=== PATIENT | male | born 1940 | race Hispanic/Latino ===

== ENCOUNTER 2019-11-27 04:21 | Emergency (ER) | payer MEDICARE ==
[~2019-11-27] VITALS: Ht 170.2 cm; Wt 84.4 kg
[2019-11-27] MEDS ORDERED: PANTOPRAZOLE 40 MG 10ML VIAL IV STA (04:43)
[2019-11-27] MEDS ORDERED: OCTREOTIDE ACETATE 500 MCG in SODIUM CHLORIDE 0.9% 250ML 250 ML SQ STA (04:43)
--- NOTE | 2019-11-27 04:43 | NUR ---
Triage Note (not showing on tracker) 79 y/o male presents to ED via EMS per [facility] for vomiting coffee ground emesis since 1800 yesterday. Per EMS they sat in parking lot awaiting access to facility on 911 call for 1.5 hrs to bring pt to ED. Pt arrived to ED covered in dried dark red blood on face and neck, pt lying supine less than 30 degrees, noted excoriation to face and neck from dried blood irritating skin. Pt alert and oriented x 4, Azeri speaking, flaccid on L side d/t previous stroke.
[2019-11-27] MEDS ORDERED: SODIUM CHLORIDE 0.9% 1000ML 1,000 ML IV SCH ×2 (04:45→06:00)
[2019-11-27 05:15] LABS: BASOPHILS # (AUTO) 0.1 (0.0-0.1); BASOPHILS % 0.2 % (0.0-1.0); EOSINOPHILS # (AUTO) 5.7 (0.0-0.4); EOSINOPHILS % 27.9 % (0.0-6.0); HEMOGLOBIN 13.9 g/dL (14.0-18.0); LYMPHOCYTES # (AUTO) 1.4 (1.0-3.2); MEAN CORPUSCULAR HEMOGLOBIN 26.5 pg (28-32); MEAN CORPUSCULAR HGB CONC 31.6 g/dL (31-35); MEAN CORPUSCULAR VOLUME 83.8 fL (81-99); MONOCYTES # (AUTO) 0.9 (0.2-0.8); MONOCYTES % 4.4 % (4.4-11.3); NEUTROPHILS # (AUTO) 12.2 (2.1-6.9); NEUTROPHILS % 59.9 % (38.7-80.0); PLATELET COUNT 253 x10e3/uL (140-360); RED BLOOD COUNT 5.25 x10e6/uL (4.3-5.7); RED CELL DISTRIBUTION WIDTH 14.6 % (11.7-14.4)
[2019-11-27] MEDS ORDERED: TRADJENTA5 MG PO (05:32)
[2019-11-27 05:34] LABS: CREATINE KINASE MB 1.5 ng/mL (0-5.0)
[2019-11-27] MEDS ORDERED: NEXIUM20 M1 (05:40)
[2019-11-27] MEDS ORDERED: ZOLOFT25 MG (05:40)
[2019-11-27] MEDS ORDERED: LOSARTAN POTAS100 MG PO (05:40)
[2019-11-27] MEDS ORDERED: ELIQUIS5 M1 PO (05:40)
[2019-11-27] MEDS ORDERED: ELDERTONIC473 ML (05:40)
[2019-11-27] MEDS ORDERED: TYLENOL # 31 EA (05:40)
[2019-11-27] MEDS ORDERED: ATORVASTATIN CA10 MG PO (05:40)
[2019-11-27] MEDS ORDERED: SENNA LAX8.6 MG PO (05:40)
[2019-11-27] MEDS ORDERED: LACTULOSE20 GM/30 M PO (05:40)
[2019-11-27] MEDS ORDERED: HYDROCHLOROTHIA25 MG (05:40)
[2019-11-27] MEDS ORDERED: FINASTERIDE5 MG PO (05:40)
[2019-11-27 05:41] LABS: ALBUMIN 3.5 g/dL (3.5-5.0); ALBUMIN/GLOBULIN RATIO 0.8 (0.8-2.0); ANION GAP 19.2 mmol/L (8-16); CALCIUM 9.5 mg/dL (8.4-10.2); CREATININE, SERUM 1.63 mg/dL (0.72-1.25); POTASSIUM 4.2 mmol/L (3.5-5.1)
[2019-11-27] MEDS ORDERED: ONDANSETRON HCL INJ 2MG/ML 2ML 2 MG/ML VIAL IV STA (05:43)
[2019-11-27] MEDS ORDERED: PANTOPRAZOLE INJ 40 MG in SODIUM CHLORIDE 0.9% 50ML 50 ML IV STA (05:49)
[2019-11-27] MEDS ORDERED: CEFTRIAXONE SOD 1 GM/NS 50 ML 50 ML IV ONE (06:00)
--- NOTE | 2019-11-27 06:03 | Emergency Department Note ---
History of Present Illnes History of Present Illness Chief Complaint: Abdominal Complaints History of Present Illness This is a 79 year old male arrived to the ED for coffee ground emesis. Historian: Patient, Management Advisor/EMS Arrival Mode: [facility] EMS Treatment RETOUCHER: See EMS Report Severity: mild Timing of current episode: constant Chronicity: new (MARIAMA BELLO, ) Past Medical/Family History Physician Review I have reviewed the patient's past medical and family history. Any updates have been documented here. (MARIAMA BELLO DO) Past Medical History Recent Fever: No Clinical Suspicion of Infectio: No New/Unexplained Change in Ment: No Past Medical History: Hypertension, Diabetes, CVA, GERD, Hyperlipedemia Other Surgery: abdominal surgery (MARIAMA BELLO DO) Social History Smoking Cessation: Unknown if ever smoked Counseling Performed: Yes Alcohol Use: None Any Illegal Drug Use: No (MARIAMA BELLO, ) Other Any Pre-Existing Lines (PICC,: No (MARIAMA BELLO DO) Review of Systems Review of Systems Constitutional: Reports no symptoms EENTM: Reports no symptoms Cardiovascular: Reports no symptoms Respiratory: Reports no symptoms Gastrointestinal: Reports as per HPI Genitourinary: Reports no symptoms Musculoskeletal: Reports no symptoms Integumentary: Reports no symptoms Neurological: Reports no symptoms Psychological: Reports no symptoms Endocrine: Reports no symptoms Hematological/Lymphatic: Reports no symptoms (MARIAMA BELLO DO) Physical Exam Related Data Allergies: Coded Allergies: No Known Allergies (Unverified , 11/27/19) Triage Vital Signs Vital Signs Date Time Temp Pulse Resp B/P (MAP) Pulse Ox O2 Delivery O2 Flow Rate FiO2 11/27/19 04:43 98.8 91 23 164/86 97 11/27/19 05:25 Room Air Vital signs reviewed: Yes (MARIAMA BELLO, ) Physical Exam CONSTITUTIONAL Constitutional: Present well-developed, Present ill appearing HENT HENT: Present normocephalic, Present atraumatic, Present oropharynx clear/moist, Present nose normal HENT L/R: Present left ext ear normal, Present right ext ear normal EYES Eyes: Reports PERRL, Reports conjunctivae normal NECK Neck: Present ROM normal PULMONARY Pulmonary: Present effort normal, Present breath sounds normal CARDIOVASCULAR Cardiovascular: Present regular rhythm, Present heart sounds normal, Present capillary refill normal, Present normal rate GASTROINTESTINAL Abdominal: Present soft, Present nontender, Present bowel sounds normal GENITOURINARY Genitourinary: Present exam deferred SKIN Skin: Present warm, Present dry MUSCULOSKELETAL Musculoskeletal: Present ROM normal NEUROLOGICAL Neurological: Present alert, Present oriented x 3, Present no gross motor or sensory deficits PSYCHOLOGICAL Psychological: Present mood/affect normal, Present judgement normal (ACE, MARIAMA, ) Results Laboratory Result Diagram: 11/27/19 0454 11/27/19 0454 Laboratory Laboratory Tests Test 11/27/19 04:54 White Blood Count 20.40 x10e3/uL (4.8-10.8) Red Blood Count 5.25 x10e6/uL (4.3-5.7) Hemoglobin 13.9 g/dL (14.0-18.0) Hematocrit 44.0 % (38.2-49.6) Mean Corpuscular Volume 83.8 fL (81-99) Mean Corpuscular Hemoglobin 26.5 pg (28-32) Mean Corpuscular Hemoglobin Concent 31.6 g/dL (31-35) Red Cell Distribution Width 14.6 % (11.7-14.4) Platelet Count 253 x10e3/uL (140-360) Neutrophils (%) (Auto) 59.9 % (38.7-80.0) Lymphocytes (%) (Auto) 7.0 % (18.0-39.1) Monocytes (%) (Auto) 4.4 % (4.4-11.3) Eosinophils (%) (Auto) 27.9 % (0.0-6.0) Basophils (%) (Auto) 0.2 % (0.0-1.0) Neutrophils # (Auto) 12.2 (2.1-6.9) Lymphocytes # (Auto) 1.4 (1.0-3.2) Monocytes # (Auto) 0.9 (0.2-0.8) Eosinophils # (Auto) 5.7 (0.0-0.4) Basophils # (Auto) 0.1 (0.0-0.1) Absolute Immature Granulocyte (auto 0.12 x10e3/uL (0-0.1) Sodium Level 145 mmol/L (136-145) Potassium Level 4.2 mmol/L (3.5-5.1) Chloride Level 104 mmol/L (98-107) Carbon Dioxide Level 26 mmol/L (22-29) Anion Gap 19.2 mmol/L (8-16) Blood Urea Nitrogen 42 mg/dL (7-26) Creatinine 1.63 mg/dL (0.72-1.25) Estimat Glomerular Filtration Rate 41 ML/MIN (60-) BUN/Creatinine Ratio 26 (6-25) Glucose Level 179 mg/dL (74-118) Lactic Acid Level 1.5 mmol/L (0.5-2.0) Calcium Level 9.5 mg/dL (8.4-10.2) Total Bilirubin 0.3 mg/dL (0.2-1.2) Aspartate Amino Transf (AST/SGOT) 13 IU/L (5-34) Alanine Aminotransferase (ALT/SGPT) 12 IU/L (0-55) Alkaline Phosphatase 117 IU/L (40-150) Creatine Kinase 31 IU/L (30-200) Creatine Kinase MB 1.50 ng/mL (0-5.0) Troponin I 0.019 ng/mL (0-0.300) Total Protein 8.1 g/dL (6.5-8.1) Albumin 3.5 g/dL (3.5-5.0) Globulin 4.6 g/dL (2.3-3.5) Albumin/Globulin Ratio 0.8 (0.8-2.0) Lipase 95 U/L (8-78) Lab results reviewed: Yes (MARIAMA BELLO DO) Assessment & Plan Medical Decision Making MDM PT STIL HAVING COFFEE-GROUND EMESIS, LAST OCCURRED ~529, VITALS CURRENTLY STABLE ON PROTONIX AND OCTREOTIDE DRIPS (VENKAT NOLEN MD) Reassessment Reassessment NO ICU OR IMCU BEDS AVAILABLE HERE. TRANSFER INITIATED, NO BEDS IN [facility] PER TRANSFER CENTER. WE THEN CALLED [facility] WHO HAD ICU AVAILABLE AT [facility]. I SPOKE WITH DR MELARA, MARKETING AMBASSADOR AND THEN DR EMIL GASTELUM, HOSPITALIST WHO ACCEPTED PT FOR TRANSFER. (VENKAT NOLEN MD) Assessment & Plan Final Impression: (1) Upper GI bleed (MARIAMA BELLO DO) Depart Disposition: TRANS TO OTHER [facility] Last Vital Signs Date Time Temp Pulse Resp B/P (MAP) Pulse Ox O2 Delivery O2 Flow Rate FiO2 11/27/19 05:25 88 18 173/65 100 Room Air 11/27/19 04:43 98.8 (MARIAMA BELLO DO) Home Meds Reported Medications Sertraline Hcl (ZOLOFT) 25 Mg Tablet 11/27/19 Acetaminophen/Codeine* (TYLENOL # 3*) 1 Ea Tab, BID 11/27/19 Sennosides (SENNA LAX) 8.6 Mg Tablet, 8.6 MG PO BID, TAB 11/27/19 Esomeprazole Magnesium (NEXIUM) 20 Mg Suspdr.pkt 11/27/19 Losartan Potassium (LOSARTAN POTASSIUM) 100 Mg Tablet, 100 MG PO DAILY, TAB 11/27/19 Lactulose (LACTULOSE) 20 Gm/30 Ml Solution, 30 ML PO, EACH 11/27/19 Hydrochlorothiazide (HYDROCHLOROTHIAZIDE) 25 Mg Tablet, 12.5 MG DAILY, #30 TAB 11/27/19 Finasteride (FINASTERIDE) 5 Mg Tablet, 5 MG PO DAILY, #30 TAB 11/27/19 Apixaban (Eliquis) 5 Mg Tab.ds.pk, 5 MG PO BID for anticoagulant 11/27/19 Multivitamin With Minerals (ELDERTONIC) 473 Ml Elixir 11/27/19 Atorvastatin Calcium (ATORVASTATIN CALCIUM) 10 Mg Tablet, 10 MG PO 2100, #30 TAB 11/27/19 Linagliptin (TRADJENTA) 5 Mg Tablet, 2.5 MG PO HS for diabetes 11/27/19 Medications in the ED Sodium Chloride 1,000 ml @ 0 mls/hr Q10H IV Last administered on 11/27/19at 05:04; Admin Dose 999 MLS/HR; Start 11/27/19 at 04:45 Octreotide Acetate 500 mcg/ Sodium Chloride 251 ml @ 0 mls/hr Q0M STAT SQ ; Start 11/27/19 at 04:43; Stop 11/27/19 at 04:47; Status DC Pantoprazole Sodium 40 mg NOW STAT IV Last administered on 11/27/19at 05:04; Admin Dose 40 MG; Start 11/27/19 at 04:43; Stop 11/27/19 at 04:48; Status DC Ondansetron HCl 4 mg NOW STAT IV ; Start 11/27/19 at 05:43; Stop 11/27/19 at 05:50; Status DC Ceftriaxone Sodium 50 ml @ 100 mls/hr ONCE ONCE IV ; Start 11/27/19 at 06:00; Stop 11/27/19 at 06:29 Sodium Chloride 1,000 ml @ 125 mls/hr Q8H IV ; Start 11/27/19 at 06:00; Stop 12/27/19 at 05:59; Status UNV Pantoprazole Sodium 40 mg/ Sodium Chloride 50 ml @ 10 mls/hr Q24H STAT IV ; Start 11/27/19 at 05:49; Stop 11/27/19 at 10:48; Status UNV (MARIAMA BELLO DO) MARIAMA BELLO DO Nov 27, 2019 06:03 VENKAT NOLEN MD Nov 27, 2019 07:43
[2019-11-27] MEDS ORDERED: OCTREOTIDE ACETATE 1 ML ONE (06:29)
[2019-11-27] MEDS ORDERED: OCTREOTIDE ACETATE 0.05 MG/ML AMP IV STA (06:31)
--- NOTE | 2019-11-27 06:35 | NUR ---
0612: SPOKE WITH MADDY OVERTON, SNOW REMOVAL SUPERVISOR WITH [facility] TO INITIATE TRANSFER. RECEIVED CALL BACK AT 0635. DENIED AT THIS TIME. NO BED AVAILABLITY THROUGHOUT [facility].
[2019-11-27 06:55] LABS: INR 1.26; PROTHROMBIN TIME 16.5 seconds (11.9-14.5)
--- NOTE | 2019-11-27 07:02 | NUR ---
dr walker talking to dr smith for transfer [facility]
--- NOTE | 2019-11-27 07:05 | NUR ---
called for ems transport to [facility]. one hr eta. [facility]
--- NOTE | 2019-11-27 07:16 | NUR ---
Nursing report given to Keiko GARCIA.
--- NOTE | 2019-11-27 07:54 | Diagnostic Imaging Report ---
EXAMINATION: CHEST SINGLE (PORTABLE) INDICATION: Upper gastrointestinal bleeding. COMPARISON: None FINDINGS: TUBES and LINES: None. LUNGS: Low lung volumes with bronchovascular crowding. There is hazy opacification of the entire right lung and left lung base. PLEURA: No pleural effusion or pneumothorax. HEART AND MEDIASTINUM: The cardiomediastinal silhouette is unremarkable. BONES AND SOFT TISSUES: No acute osseous lesion. Degenerative changes of the glenohumeral and AC joints. Soft tissues are unremarkable. UPPER ABDOMEN: No free air under the diaphragm. IMPRESSION: Hazy opacification of the entire right lung and left lung base which may be secondary to developing multifocal infection. Signed by: Jamel Lockhart MD on 11/27/2019 7:50 AM
[2019-11-27 08:52] VITALS: BP 141/73
--- NOTE | 2019-11-27 09:05 | Diagnostic Imaging Report ---
EXAM: CT Abdomen and Pelvis WITH contrast INDICATION: Upper gastrointestinal bleeding COMPARISON: None. TECHNIQUE: Abdomen and pelvis were scanned utilizing a multidetector helical scanner from the lung base to the pubic symphysis after administration of IV contrast. Coronal and sagittal reformations were obtained. Routine protocol was performed. Scan was performed when during portal venous phase. IV CONTRAST: 100 mL of Isovue 370 ORAL CONTRAST: None COMPLICATIONS: None RADIATION DOSE: Total DLP: 640.30 mGy*cm Estimated effective dose: (DLP x 0.015 x size factor) mSv CTDIvol has been reviewed. It is below the limits set by the Radiation Protocol Committee (RPC). Dose modulation, iterative reconstruction, and/or weight based adjustment of the mA/kV was utilized to reduce the radiation dose to as low as reasonably achievable. FINDINGS: LINES and TUBES: There is a partially imaged enteric tube which terminates in the gastric fundus LOWER THORAX: There is bibasilar atelectasis. HEPATOBILIARY: No focal hepatic lesions. No biliary ductal dilation. GALLBLADDER: No radio-opaque stones or sludge. No wall thickening. SPLEEN: No splenomegaly. PANCREAS: No focal masses or ductal dilatation. ADRENALS: No adrenal nodules KIDNEYS/URETERS: Kidneys enhance symmetrically. No hydronephrosis. There are multilobulated parapelvic and exophytic cysts in the inferior pole of the left kidney. No stones. GI TRACT: There is mucosal enhancement of the gastric wall particularly in the fundus and body. There are scattered diverticulosis without evidence of active inflammation. No abnormal distention, wall thickening, or evidence of bowel obstruction. The appendix is not visualized in isolation, however there are no secondary signs of appendicitis. PELVIC ORGANS/BLADDER: Unremarkable. LYMPH NODES: No lymphadenopathy. VESSELS: The abdominal aorta and its major abdomen and pelvic branches have normal caliber with calcified and noncalcified atherosclerotic plaque. PERITONEUM / RETROPERITONEUM: No free air or fluid. BONES: There is multilevel degenerative disease of the spine with flowing anterior osteophytes compatible with diffuse etiopathic skeletal hyperostosis. No suspicious osteolytic or osteoblastic lesions. SOFT TISSUES: Unremarkable. IMPRESSION: 1. Mucosal enhancement of the gastric wall particularly in the fundus and body which can be suggestive of mild gastritis. CT scan are not sensitive for detection of small gastrointestinal bleeding. If patient continues to be symptomatic, an nuclear medicine RBC scan is a more sensitive examination which can be considered. 2. Diverticulosis without evidence of active inflammation. Signed by: Jamel Lockhart MD on 11/27/2019 9:02 AM
[2019-11-27 10:15] LABS: BAND NEUTROPHILS % (MANUAL) 4 %; EOSINOPHILS % (MANUAL) 23 % (0-7); LYMPHOCYTES % (MANUAL) 5 % (19-48); MONOCYTES % (MANUAL) 3 % (3.4-9.0); NEUTROPHILS % (MANUAL) 65 % (40-74)
[2019-11-27] MEDS ORDERED: IOPAMIDOL 370 MG/ML 200 ML INFUS..BTL INJ ONE (12:16)
[2019-11-27] MEDS ORDERED: SODIUM CHLORIDE 0.9% 50ML 50 ML ONE (12:16)
== END 2019-11-27 08:54 | disposition other institution (70) ==
LOC: ER 04:43
DX: K92.2 Gastrointestinal hemorrhage, unspecified (principal); E11.65 Type 2 diabetes mellitus with hyperglycemia; I10 Essential (primary) hypertension; K21.9 Gastro-esophageal reflux disease without esophagitis; E78.5 Hyperlipidemia, unspecified; Z86.73 Personal history of transient ischemic attack (TIA), and cerebral infarction without residual deficits
CPT/HCPCS: 36415; 71045; 74177; 80053; 82550; 82553; 83605; 83690; 84484; 85025; 85610; 85730; 86850; 86900; 87040; 93005; 99285; C9113; J0696; J2353; J2405; J7030; J7050; Q9967

== ENCOUNTER 2022-06-06 06:03 | Inpatient (IN) | payer MEDICARE, OTHER ==
[~2022-06-06 06:03] MED LIST: ACETAMINOPHEN325 M1 PO; ALBUTEROL0.63 MG/3 NEB; AMIODARONE HCL200 MG PO; ATORVASTATIN CA10 MG PO; BISACODYL5 MG PO; ELDERTONIC473 ML; ELIQUIS5 M1 PO; FEROSUL325 MG PO; FINASTERIDE5 MG PO; HYDROCHLOROTHIA25 MG; LACTULOSE20 GM/30 M PO; LINZESS290 MCG; LOSARTAN POTAS100 MG PO; NEXIUM20 M1; NYSTATIN15 GM TOP; PROBIOTIC & AC1 EACH PO; PROTONIX20 MG PO; SENNA LAX8.6 MG PO; SODIUM BICARBO650 MG PO; TRADJENTA5 MG PO; TYLENOL # 31 EA; TYLENOL #3; ULTRAM 50MG50 MG PO; VITAMIN D31 GM; ZOLOFT25 MG; [UNRECOGNIZED DRUG - OTHER]
[2022-06-06 06:36] LABS: BASOPHILS % 0.3 % (0.0-1.0); EOSINOPHILS # (AUTO) 0.5 (0.0-0.4); EOSINOPHILS % 3.4 % (0.0-6.0); HEMATOCRIT 21.4 % (38.2-49.6); LYMPHOCYTES % 14.2 % (18.0-39.1); MEAN CORPUSCULAR HEMOGLOBIN 21.4 pg (28-32); MEAN CORPUSCULAR HGB CONC 25.2 g/dL (31-35); MEAN CORPUSCULAR VOLUME 84.9 fL (81-99); MONOCYTES % 7.3 % (4.4-11.3); NEUTROPHILS # (AUTO) 10.4 (2.1-6.9); NEUTROPHILS % 74.2 % (38.7-80.0); PLATELET COUNT 349 x10e3/uL (140-360); RED BLOOD COUNT 2.52 x10e6/uL (4.3-5.7); RED CELL DISTRIBUTION WIDTH 17.1 % (11.7-14.4)
[2022-06-06 06:41] LABS: HEMOGLOBIN 5.4 g/dL (14.0-18.0)
[2022-06-06] MEDS ORDERED: CEFTRIAXONE 1 GM VIAL ONE (06:41)
[2022-06-06 06:58] LABS: INR 1.08; PROTHROMBIN TIME 14.2 seconds (11.9-14.5)
[2022-06-06 06:59] LABS: PARTIAL THROMBOPLASTIN TIME 41.2 seconds (23.8-35.5)
[2022-06-06 07:06] LABS: ANION GAP 11.1 mmol/L (8-16); CALCIUM 8.1 mg/dL (8.4-10.2); CREATININE, SERUM 1.96 mg/dL (0.72-1.25); POTASSIUM 5.1 mmol/L (3.5-5.1)
[2022-06-06 07:24] LABS: HEMATOCRIT 19.5 % (38.2-49.6)
[2022-06-06] MEDS: PANTOPRAZOLE SOD 40 MG TABEC PO SCH ×2 (09:00→17:00)
[2022-06-06] MEDS ORDERED: ALBUTEROL/IPRATROPIUM 3 ML NEB NEB PRN (11:15)
[2022-06-06] MEDS ORDERED: DOCUSATE SODIUM 100 MG CAP PO PRN (11:15)
[2022-06-06] MEDS ORDERED: ACETAMINOPHEN 325 MG TAB PO PRN (11:15)
[2022-06-06] MEDS ORDERED: ONDANSETRON HCL INJ 2MG/ML 2ML 2 MG/ML VIAL IV PRN (11:15)
[2022-06-06 11:53] VITALS: BP 102/46
[2022-06-06 12:26] LABS: FERRITIN 28.87 ng/mL (21.81-274.66)
[2022-06-06 14:00] VITALS: BP 102/46
[2022-06-06] MEDS ORDERED: FUROSEMIDE INJ 10 MG/ML 2 ML VIAL IV SCH (14:00)
[2022-06-06 16:21] VITALS: BP 108/41
[2022-06-06] MEDS ORDERED: SODIUM CHLORIDE 0.9% 250ML 250 ML ONE (16:34)
[2022-06-06] MEDS: SENNOSIDES 8.6 MG TAB PO SCH (17:33)
[2022-06-06 19:30] VITALS: BP 126/48
[2022-06-06 20:00] VITALS: BP 126/48
[2022-06-06] MEDS: ATORVASTATIN 10 MG TAB PO SCH (22:03)
[2022-06-07] VITALS: BP 144/58
[2022-06-07] MEDS ORDERED: BISACODYL 5 MG TAB EC PO ONE ×5 (01:45→03:45)
[2022-06-07] MEDS ORDERED: PEG (High)/E-LYTE SOLN 4,000 ML BTL PO ONE ×2 (01:45→06:00)
[2022-06-07] MEDS ORDERED: FUROSEMIDE INJ 10 MG/ML 2 ML VIAL IV PRN (07:30)
[2022-06-07 08:16] VITALS: BP 114/56
[2022-06-07] MEDS: SENNOSIDES 8.6 MG TAB PO SCH ×2 (09:00→17:00)
[2022-06-07] MEDS: FERROUS SULFATE 325 MG TAB PO SCH (10:05)
[2022-06-07] MEDS: FINASTERIDE 5 MG TAB PO SCH (10:05)
[2022-06-07] MEDS: AMIODARONE HCL 200 MG TAB PO SCH (10:05)
[2022-06-07] MEDS: PANTOPRAZOLE SOD 40 MG TABEC PO SCH ×2 (10:05→18:04)
[2022-06-07] MEDS ORDERED: SODIUM CHLORIDE 0.9% 250ML 250 ML ONE (10:28)
[2022-06-07] MEDS: IRON SUCROSE 100 MG in SODIUM CHLORIDE 0.9% 100 ML IV SCH (10:29)
[2022-06-07 11:54] VITALS: BP 114/56
[2022-06-07 15:59] VITALS: BP 149/58
[2022-06-07 16:05] LABS: BASOPHILS % 0.3 % (0.0-1.0); EOSINOPHILS # (AUTO) 0.2 (0.0-0.4); EOSINOPHILS % 2.1 % (0.0-6.0); HEMATOCRIT 32.6 % (38.2-49.6); HEMOGLOBIN 9.4 g/dL (14.0-18.0); LYMPHOCYTES # (AUTO) 1.5 (1.0-3.2); LYMPHOCYTES % 13.1 % (18.0-39.1); MEAN CORPUSCULAR HEMOGLOBIN 25.3 pg (28-32); MEAN CORPUSCULAR HGB CONC 28.8 g/dL (31-35); MEAN CORPUSCULAR VOLUME 87.6 fL (81-99); MONOCYTES # (AUTO) 0.6 (0.2-0.8); MONOCYTES % 5.6 % (4.4-11.3); NEUTROPHILS % 78.5 % (38.7-80.0); PLATELET COUNT 307 x10e3/uL (140-360); RED BLOOD COUNT 3.72 x10e6/uL (4.3-5.7); RED CELL DISTRIBUTION WIDTH 16.9 % (11.7-14.4)
[2022-06-07 16:22] LABS: ANION GAP 12.1 mmol/L (8-16); CREATININE, SERUM 2.16 mg/dL (0.72-1.25); POTASSIUM 4.1 mmol/L (3.5-5.1)
[2022-06-07 20:00] VITALS: BP 155/64
[2022-06-07] MEDS: ATORVASTATIN 10 MG TAB PO SCH (21:40)
[2022-06-08] VITALS (9 sets, daily range): BP systolic 122–155; BP diastolic 45–65
[2022-06-08 07:14] LABS: BASOPHILS % 0.3 % (0.0-1.0); EOSINOPHILS # (AUTO) 0.2 (0.0-0.4); EOSINOPHILS % 1.5 % (0.0-6.0); HEMATOCRIT 39.2 % (38.2-49.6); HEMOGLOBIN 10.2 g/dL (14.0-18.0); LYMPHOCYTES # (AUTO) 1.5 (1.0-3.2); LYMPHOCYTES % 12.8 % (18.0-39.1); MEAN CORPUSCULAR HEMOGLOBIN 25.4 pg (28-32); MEAN CORPUSCULAR VOLUME 97.5 fL (81-99); MONOCYTES # (AUTO) 0.9 (0.2-0.8); MONOCYTES % 8.1 % (4.4-11.3); NEUTROPHILS # (AUTO) 8.9 (2.1-6.9); NEUTROPHILS % 76.8 % (38.7-80.0); PLATELET COUNT 328 x10e3/uL (140-360); RED BLOOD COUNT 4.02 x10e6/uL (4.3-5.7); RED CELL DISTRIBUTION WIDTH 18.2 % (11.7-14.4)
[2022-06-08 07:31] LABS: ANION GAP 8.5 mmol/L (8-16); CREATININE, SERUM 2.1 mg/dL (0.72-1.25); POTASSIUM 3.5 mmol/L (3.5-5.1)
[2022-06-08] MEDS: SENNOSIDES 8.6 MG TAB PO SCH ×2 (09:00→17:24)
[2022-06-08] MEDS: PANTOPRAZOLE SOD 40 MG TABEC PO SCH ×2 (10:01→17:24)
[2022-06-08] MEDS: AMIODARONE HCL 200 MG TAB PO SCH (10:01)
[2022-06-08] MEDS: FINASTERIDE 5 MG TAB PO SCH (10:01)
[2022-06-08] MEDS: FERROUS SULFATE 325 MG TAB PO SCH (10:01)
[2022-06-08] MEDS: IRON SUCROSE 100 MG in SODIUM CHLORIDE 0.9% 100 ML IV SCH (10:01)
[2022-06-08] MEDS: SODIUM BICARBONATE 8.4% 50 ML in SODIUM CHLORIDE 0.45% 1,000 ML IV SCH (15:00)
[2022-06-08] MEDS: ATORVASTATIN 10 MG TAB PO SCH (21:28)
[2022-06-09] VITALS (7 sets, daily range): BP systolic 142–159; BP diastolic 58–73
[2022-06-09] MEDS ORDERED: BISACODYL 5 MG TAB EC PO ONE ×6 (00:30→14:30)
[2022-06-09 05:58] LABS: BASOPHILS % 0.3 % (0.0-1.0); EOSINOPHILS # (AUTO) 0.3 (0.0-0.4); EOSINOPHILS % 2.8 % (0.0-6.0); HEMATOCRIT 30.5 % (38.2-49.6); HEMOGLOBIN 9.2 g/dL (14.0-18.0); LYMPHOCYTES # (AUTO) 1.6 (1.0-3.2); LYMPHOCYTES % 13.5 % (18.0-39.1); MEAN CORPUSCULAR HEMOGLOBIN 24.9 pg (28-32); MEAN CORPUSCULAR HGB CONC 30.2 g/dL (31-35); MEAN CORPUSCULAR VOLUME 82.4 fL (81-99); MONOCYTES # (AUTO) 1.1 (0.2-0.8); MONOCYTES % 8.8 % (4.4-11.3); NEUTROPHILS # (AUTO) 8.9 (2.1-6.9); NEUTROPHILS % 73.9 % (38.7-80.0); PLATELET COUNT 312 x10e3/uL (140-360); RED CELL DISTRIBUTION WIDTH 17.8 % (11.7-14.4)
[2022-06-09 06:23] LABS: ANION GAP 12.3 mmol/L (8-16); CALCIUM 7.8 mg/dL (8.4-10.2); CREATININE, SERUM 1.93 mg/dL (0.72-1.25); POTASSIUM 3.3 mmol/L (3.5-5.1)
[2022-06-09] MEDS: FINASTERIDE 5 MG TAB PO SCH (08:30)
[2022-06-09] MEDS: SENNOSIDES 8.6 MG TAB PO SCH ×2 (08:30→17:00)
[2022-06-09] MEDS: FERROUS SULFATE 325 MG TAB PO SCH (08:30)
[2022-06-09] MEDS: AMIODARONE HCL 200 MG TAB PO SCH (08:30)
[2022-06-09] MEDS: PANTOPRAZOLE SOD 40 MG TABEC PO SCH ×2 (08:30→17:00)
[2022-06-09] MEDS ORDERED: SODIUM CHLORIDE 0.9% 250ML 250 ML ONE (09:27)
[2022-06-09] MEDS: IRON SUCROSE 100 MG in SODIUM CHLORIDE 0.9% 100 ML IV SCH (10:18)
[2022-06-09] MEDS: SODIUM BICARBONATE 8.4% 50 ML in SODIUM CHLORIDE 0.45% 1,000 ML IV SCH (11:36)
[2022-06-09] MEDS ORDERED: FENTANYL CITRATE/PF 100MCG/2 ML INJ ONE (13:00)
[2022-06-09] MEDS ORDERED: POVIDONE IODINE 0.05% 0.05 % ML PO ONE (13:15)
[2022-06-09] MEDS ORDERED: LIDOCAINE HCL 2% LOCAL INJ 5 ML SDV VIAL INJ ONE (13:15)
[2022-06-09] MEDS ORDERED: SEVOFLURANE INHAL SOLN 250 ML PEN BTL ONE (13:15)
[2022-06-09] MEDS ORDERED: PROPOFOL IV EMULSION 10 MG/ML 20 ML VIAL ONE (13:15)
[2022-06-09] MEDS ORDERED: PEG (High)/E-LYTE SOLN 4,000 ML BTL PO ONE (13:45)
[2022-06-09] MEDS ORDERED: PEG (High)/E-LYTE SOLN 4,000 ML BTL ONE (14:13)
[2022-06-09] MEDS: ATORVASTATIN 10 MG TAB PO SCH (21:01)
[2022-06-10] VITALS (9 sets, daily range): BP systolic 121–154; BP diastolic 56–98
[2022-06-10] MEDS: SODIUM BICARBONATE 8.4% 50 ML in SODIUM CHLORIDE 0.45% 1,000 ML IV SCH (00:55)
[2022-06-10] MEDS ORDERED: BISACODYL 5 MG TAB EC PO ONE (02:00)
[2022-06-10 07:01] LABS: BASOPHILS # (AUTO) 0.1 (0.0-0.1); BASOPHILS % 0.4 % (0.0-1.0); EOSINOPHILS # (AUTO) 0.3 (0.0-0.4); EOSINOPHILS % 2.7 % (0.0-6.0); HEMATOCRIT 32.7 % (38.2-49.6); HEMOGLOBIN 10.1 g/dL (14.0-18.0); LYMPHOCYTES # (AUTO) 1.7 (1.0-3.2); LYMPHOCYTES % 13.4 % (18.0-39.1); MEAN CORPUSCULAR HEMOGLOBIN 25.4 pg (28-32); MEAN CORPUSCULAR HGB CONC 30.9 g/dL (31-35); MEAN CORPUSCULAR VOLUME 82.2 fL (81-99); MONOCYTES % 8.1 % (4.4-11.3); NEUTROPHILS # (AUTO) 9.4 (2.1-6.9); NEUTROPHILS % 74.8 % (38.7-80.0); PLATELET COUNT 321 x10e3/uL (140-360); RED BLOOD COUNT 3.98 x10e6/uL (4.3-5.7); RED CELL DISTRIBUTION WIDTH 17.5 % (11.7-14.4)
[2022-06-10 07:31] LABS: ANION GAP 12.6 mmol/L (8-16); CALCIUM 7.9 mg/dL (8.4-10.2); CREATININE, SERUM 1.83 mg/dL (0.72-1.25)
[2022-06-10 07:47] LABS: POTASSIUM 2.6 mmol/L (3.5-5.1)
[2022-06-10] MEDS: PANTOPRAZOLE SOD 40 MG TABEC PO SCH ×2 (07:53→18:25)
[2022-06-10] MEDS: FERROUS SULFATE 325 MG TAB PO SCH (07:53)
[2022-06-10] MEDS: FINASTERIDE 5 MG TAB PO SCH (07:53)
[2022-06-10] MEDS: AMIODARONE HCL 200 MG TAB PO SCH (07:53)
[2022-06-10] MEDS: SENNOSIDES 8.6 MG TAB PO SCH ×2 (07:53→17:00)
[2022-06-10] MEDS ORDERED: POTASSIUM CHLORIDE 20MEQ/100ML 100 ML IV ONE (08:15)
[2022-06-10] MEDS ORDERED: ONDANSETRON HCL 4 MG ORAL DISINTEGRATING TAB PO PRN (08:30)
[2022-06-10] MEDS ORDERED: PROPOFOL IV EMULSION 10 MG/ML 20 ML VIAL ONE (12:51)
[2022-06-10] MEDS ORDERED: POVIDONE IODINE 0.05% 0.05 % ML PO ONE (12:51)
[2022-06-10] MEDS ORDERED: PHENYLEPHRINE HCL 1% 10 MG/ML VIAL ONE (12:51)
[2022-06-10] MEDS ORDERED: GLUCAGON FOR INJ 1 MG VIAL ONE (12:51)
[2022-06-10] MEDS ORDERED: HYOSCYAMINE SULFATE 0.5 MG/ML INJ ONE (12:51)
[2022-06-10] MEDS ORDERED: LIDOCAINE HCL 2% LOCAL INJ 5 ML SDV VIAL INJ ONE (12:51)
[2022-06-10] MEDS: SODIUM BICARBONATE 8.4% 150 ML in SODIUM CHLORIDE 0.45% 1,000 ML IV SCH (14:07)
[2022-06-10] MEDS: IRON SUCROSE 100 MG in SODIUM CHLORIDE 0.9% 100 ML IV SCH (14:07)
[2022-06-10] MEDS ORDERED: SODIUM CHLORIDE 0.9% 250ML 250 ML ONE (14:19)
[2022-06-10] MEDS: BACITRACIN ZINC 15 GM OINT TOP SCH (15:18)
[2022-06-10] MEDS: BALSAM PERU/CASTOR OIL 60 GM OINT...G. TP SCH (15:18)
[2022-06-10 19:16] LABS: ANION GAP 13.8 mmol/L (8-16); CALCIUM 8.1 mg/dL (8.4-10.2); CREATININE, SERUM 2.06 mg/dL (0.72-1.25)
[2022-06-10 19:20] LABS: POTASSIUM 2.8 mmol/L (3.5-5.1)
[2022-06-10] MEDS ORDERED: POTASSIUM CHLORIDE 10MEQ EA PO ONE (20:15)
[2022-06-10] MEDS: ATORVASTATIN 10 MG TAB PO SCH (20:55)
[2022-06-11] VITALS (8 sets, daily range): BP systolic 125–156; BP diastolic 51–56
[2022-06-11] MEDS: SODIUM BICARBONATE 8.4% 150 ML in SODIUM CHLORIDE 0.45% 1,000 ML IV SCH ×2 (06:05→08:00)
[2022-06-11 06:47] LABS: BASOPHILS # (AUTO) 0.1 (0.0-0.1); BASOPHILS % 0.4 % (0.0-1.0); EOSINOPHILS # (AUTO) 0.3 (0.0-0.4); EOSINOPHILS % 1.9 % (0.0-6.0); HEMATOCRIT 31.2 % (38.2-49.6); HEMOGLOBIN 9.7 g/dL (14.0-18.0); LYMPHOCYTES # (AUTO) 1.7 (1.0-3.2); LYMPHOCYTES % 12.9 % (18.0-39.1); MEAN CORPUSCULAR HEMOGLOBIN 25.7 pg (28-32); MEAN CORPUSCULAR HGB CONC 31.1 g/dL (31-35); MEAN CORPUSCULAR VOLUME 82.5 fL (81-99); MONOCYTES # (AUTO) 1.1 (0.2-0.8); MONOCYTES % 8.3 % (4.4-11.3); NEUTROPHILS # (AUTO) 9.9 (2.1-6.9); NEUTROPHILS % 75.9 % (38.7-80.0); PLATELET COUNT 301 x10e3/uL (140-360); RED BLOOD COUNT 3.78 x10e6/uL (4.3-5.7)
[2022-06-11 07:11] LABS: ANION GAP 12.7 mmol/L (8-16); CALCIUM 7.5 mg/dL (8.4-10.2); CREATININE, SERUM 2.13 mg/dL (0.72-1.25)
[2022-06-11 07:13] LABS: POTASSIUM 2.7 mmol/L (3.5-5.1)
[2022-06-11] MEDS ORDERED: POTASSIUM CHLORIDE 20 MEQ TAB CR PO ONE (08:00)
[2022-06-11] MEDS: BACITRACIN ZINC 15 GM OINT TOP SCH (09:00)
[2022-06-11] MEDS: IRON SUCROSE 100 MG in SODIUM CHLORIDE 0.9% 100 ML IV SCH (09:00)
[2022-06-11] MEDS: BALSAM PERU/CASTOR OIL 60 GM OINT...G. TP SCH (09:00)
[2022-06-11] MEDS: FINASTERIDE 5 MG TAB PO SCH (09:02)
[2022-06-11] MEDS: PANTOPRAZOLE SOD 40 MG TABEC PO SCH ×2 (09:02→16:58)
[2022-06-11] MEDS: SENNOSIDES 8.6 MG TAB PO SCH ×2 (09:02→21:07)
[2022-06-11] MEDS: FERROUS SULFATE 325 MG TAB PO SCH (09:02)
[2022-06-11] MEDS: AMIODARONE HCL 200 MG TAB PO SCH (09:03)
[2022-06-11] MEDS: POTASSIUM CHLORIDE 20MEQ/100ML 100 ML IV SCH ×2 (13:30→16:16)
[2022-06-11] MEDS ORDERED: MAGNESIUM SULFATE 2GM/50ML 50 ML IV ONE (13:30)
[2022-06-11] MEDS: SODIUM BICARBONATE 8.4% 150 ML in STERILE WATER IV SOLN 1,000 ML IV SCH (16:58)
[2022-06-11] MEDS ORDERED: POTASSIUM CHLORIDE 20MEQ/100ML 100 ML IV ONE ×3 (17:00→20:30)
[2022-06-11 18:31] LABS: CLARITY,URINE TURBID (CLEAR); COLOR,URINE YELLOW (YELLOW); LEUKOCYTE ESTERASE ,URINE LARGE (NEGATIVE); NITRITE,URINE POSITIVE (NEGATIVE)
[2022-06-11 18:32] LABS: KETONES,URINE NEGATIVE (NEGATIVE); PROTEIN,URINE DIPSTICK >=300 (NEGATIVE); URINE UROBILINOGEN 0.2 mg/dL (0.2 - 1)
[2022-06-11 18:35] LABS: BACTERIA,URINE MODERATE /HPF; WBC,URINE (MAN) 21-50 /HPF (0-5)
[2022-06-11] MEDS: ATORVASTATIN 10 MG TAB PO SCH (21:06)
[2022-06-11] MEDS: SODIUM BICARBONATE 650 MG TAB PO SCH (21:06)
[2022-06-12] VITALS (8 sets, daily range): BP systolic 138–158; BP diastolic 56–70
[2022-06-12] MEDS ORDERED: TRAMADOL HCL 50 MG TAB PO ONE (01:00)
[2022-06-12] MEDS: Morphine 2mg Syringe 2 MG/ML SYR IV PRN (01:15)
[2022-06-12 07:26] LABS: ALBUMIN 1.9 g/dL (3.5-5.0); ALBUMIN/GLOBULIN RATIO 0.5 (0.8-2.0); ALKALINE PHOSPHATASE 77 IU/L (40-150); ANION GAP 11.9 mmol/L (8-16); BLOOD UREA NITROGEN 20 mg/dL (7-26); BUN/CREATININE RATIO 10 (6-25); CALCIUM 7.5 mg/dL (8.4-10.2); CARBON DIOXIDE 18 mmol/L (22-29); CHLORIDE 112 mmol/L (98-107); CREATININE, SERUM 2.07 mg/dL (0.72-1.25); GLUCOSE 99 mg/dL (74-118); PHOSPHORUS 1.9 MG/DL (2.3-4.7); POTASSIUM 3.9 mmol/L (3.5-5.1); SODIUM 138 mmol/L (136-145)
[2022-06-12 07:29] LABS: ALANINE AMINOTRANSFERASE < 6 IU/L (0-55)
[2022-06-12] MEDS: FERROUS SULFATE 325 MG TAB PO SCH (08:49)
[2022-06-12] MEDS: SENNOSIDES 8.6 MG TAB PO SCH ×2 (08:49→21:10)
[2022-06-12] MEDS: AMIODARONE HCL 200 MG TAB PO SCH (08:49)
[2022-06-12] MEDS: FINASTERIDE 5 MG TAB PO SCH (08:49)
[2022-06-12] MEDS: PANTOPRAZOLE SOD 40 MG TABEC PO SCH ×2 (08:50→17:23)
[2022-06-12] MEDS: BACITRACIN ZINC 15 GM OINT TOP SCH (08:54)
[2022-06-12] MEDS: BALSAM PERU/CASTOR OIL 60 GM OINT...G. TP SCH (08:54)
[2022-06-12] MEDS: SODIUM BICARBONATE 650 MG TAB PO SCH ×3 (09:15→21:10)
[2022-06-12] MEDS ORDERED: POTASSIUM PHOSPHATE 30 MM in SODIUM CHLORIDE 0.9% 250ML 250 ML IV ONE (14:45)
[2022-06-12] MEDS: SODIUM BICARBONATE 8.4% 150 ML in STERILE WATER IV SOLN 1,000 ML IV SCH ×2 (15:43→23:40)
[2022-06-12] MEDS: ATORVASTATIN 10 MG TAB PO SCH (21:10)
[2022-06-13] VITALS: BP 158/62
[2022-06-13 04:00] VITALS: BP 155/65
[2022-06-13] MEDS: Morphine 2mg Syringe 2 MG/ML SYR IV PRN (04:51)
[2022-06-13 06:54] LABS: ALBUMIN 1.9 g/dL (3.5-5.0); ALBUMIN/GLOBULIN RATIO 0.5 (0.8-2.0); CALCIUM 7.4 mg/dL (8.4-10.2); CREATININE, SERUM 1.65 mg/dL (0.72-1.25)
[2022-06-13 08:15] VITALS: BP 144/54
[2022-06-13] MEDS: PANTOPRAZOLE SOD 40 MG TABEC PO SCH ×2 (09:00→16:11)
[2022-06-13] MEDS: BACITRACIN ZINC 15 GM OINT TOP SCH (09:00)
[2022-06-13] MEDS: BALSAM PERU/CASTOR OIL 60 GM OINT...G. TP SCH (09:00)
[2022-06-13] MEDS: SODIUM BICARBONATE 650 MG TAB PO SCH ×2 (09:00→13:49)
[2022-06-13 12:34] VITALS: BP 159/53
[2022-06-13] MEDS: FINASTERIDE 5 MG TAB PO SCH (13:49)
[2022-06-13] MEDS: AMIODARONE HCL 200 MG TAB PO SCH (13:49)
[2022-06-13] MEDS: FERROUS SULFATE 325 MG TAB PO SCH (13:49)
[2022-06-13] MEDS: SENNOSIDES 8.6 MG TAB PO SCH (13:49)
[2022-06-13] MEDS ORDERED: CEPHALEXIN500 MG PO (14:09)
[2022-06-13] MEDS ORDERED: SODIUM BICARBO650 MG PO (14:09)
[2022-06-13 15:41] VITALS: BP 150/58
== END 2022-06-13 16:49 | disposition home or self-care (01) | DRG 377 ==
LOC: OR 06:03 → PACU V 07:10 → MED/SURG3 10:20 → OBSVTOIN 06-09 07:49
PROVIDERS: ADMIT Internal Medicine; ATTEND Internal Medicine
PROC: 30243N1 Transfusion of Nonautologous Red Blood Cells into Central Vein, Percutaneous Approach (ICD-10-PCS; 2022-06-06)
PROC: 0DB78ZX Excision of Stomach, Pylorus, Via Natural or Artificial Opening Endoscopic, Diagnostic (ICD-10-PCS; 2022-06-10)
PROC: 0DB68ZX Excision of Stomach, Via Natural or Artificial Opening Endoscopic, Diagnostic (ICD-10-PCS; 2022-06-10)
PROC: 0DBN8ZZ Excision of Sigmoid Colon, Via Natural or Artificial Opening Endoscopic (ICD-10-PCS; 2022-06-10)
PROC: 0DBL8ZZ Excision of Transverse Colon, Via Natural or Artificial Opening Endoscopic (ICD-10-PCS; 2022-06-10)
PROC: 02HV33Z Insertion of Infusion Device into Superior Vena Cava, Percutaneous Approach (ICD-10-PCS; 2022-06-10 12:07)
PROC: 0TP98DZ Removal of Intraluminal Device from Ureter, Via Natural or Artificial Opening Endoscopic (ICD-10-PCS; principal; 2022-06-13 09:17)
PROC: BT141ZZ Fluoroscopy of Kidneys, Ureters and Bladder using Low Osmolar Contrast (ICD-10-PCS; 2022-06-13 09:17)
DX: K29.71 Gastritis, unspecified, with bleeding (principal); N17.0 Acute kidney failure with tubular necrosis; E87.20 Acidosis, unspecified; I48.20 Chronic atrial fibrillation, unspecified; I69.354 Hemiplegia and hemiparesis following cerebral infarction affecting left non-dominant side; D68.9 Coagulation defect, unspecified; N39.0 Urinary tract infection, site not specified; T83.592A Infection and inflammatory reaction due to indwelling ureteral stent, initial encounter; D64.9 Anemia, unspecified; N40.1 Benign prostatic hyperplasia with lower urinary tract symptoms; E87.6 Hypokalemia; E83.42 Hypomagnesemia; Z96.0 Presence of urogenital implants; I12.9 Hypertensive chronic kidney disease with stage 1 through stage 4 chronic kidney disease, or unspecified chronic kidney disease; D50.9 Iron deficiency anemia, unspecified; Z79.01 Long term (current) use of anticoagulants; E11.22 Type 2 diabetes mellitus with diabetic chronic kidney disease; N28.1 Cyst of kidney, acquired; N31.9 Neuromuscular dysfunction of bladder, unspecified; N39.498 Other specified urinary incontinence; Q54.8 Other hypospadias; N18.32 Chronic kidney disease, stage 3b; Z20.822 Contact with and (suspected) exposure to COVID-19; D12.7 Benign neoplasm of rectosigmoid junction; E78.5 Hyperlipidemia, unspecified; K44.9 Diaphragmatic hernia without obstruction or gangrene; B96.89 Other specified bacterial agents as the cause of diseases classified elsewhere; K20.90 Esophagitis, unspecified without bleeding; K63.89 Other specified diseases of intestine; D12.3 Benign neoplasm of transverse colon; Z79.899 Other long term (current) drug therapy; Z74.2 Need for assistance at home and no other household member able to render care
CPT/HCPCS: 0223U; 36415; 36568; 43239; 45384; 45385; 74176; 74420; 76770; 80048; 80053; 81001; 82270; 82607; 82728; 82948; 83540; 83735; 84100; 84466; 85014; 85018; 85025; 85610; 85730; 86850; 86900; 86920; 87086; 87186; 88305; 88342; 94799; 99252; C1769; G0378; J0696; J1610; J1756; J1940; J1980; J2001; J2270; J2370; J3010; J3475; J3480; J7050; P9016

== ENCOUNTER 2022-06-19 21:17 | Inpatient (IN) | payer MEDICARE, OTHER ==
[~2022-06-19] VITALS: Ht 170.2 cm; Wt 93.2 kg
[~2022-06-19 21:17] MED LIST changes: +CEPHALEXIN500 MG PO
[2022-06-19] MEDS ORDERED: ONDANSETRON HCL INJ 2MG/ML 2ML 2 MG/ML VIAL IV STA (22:43)
[2022-06-19] MEDS ORDERED: SODIUM CHLORIDE FLUSH 10 ML SYR IV PRN (22:45)
[2022-06-19] MEDS ORDERED: SODIUM CHLORIDE 0.9% 1000ML 1,000 ML IV ONE (22:45)
[2022-06-19 22:51] LABS: BASOPHILS % 0.3 % (0.0-1.0); CLARITY,URINE CLOUDY (CLEAR); COLOR,URINE YELLOW (YELLOW); EOSINOPHILS # (AUTO) 0.1 (0.0-0.4); HEMATOCRIT 40.2 % (38.2-49.6); HEMOGLOBIN 11.8 g/dL (14.0-18.0); LEUKOCYTE ESTERASE ,URINE MODERATE (NEGATIVE); LYMPHOCYTES # (AUTO) 1.3 (1.0-3.2); LYMPHOCYTES % 11.2 % (18.0-39.1); MEAN CORPUSCULAR HEMOGLOBIN 25.2 pg (28-32); MEAN CORPUSCULAR HGB CONC 29.4 g/dL (31-35); MEAN CORPUSCULAR VOLUME 85.9 fL (81-99); MONOCYTES # (AUTO) 0.5 (0.2-0.8); MONOCYTES % 4.5 % (4.4-11.3); NEUTROPHILS # (AUTO) 9.5 (2.1-6.9); NEUTROPHILS % 82.5 % (38.7-80.0); NITRITE,URINE NEGATIVE (NEGATIVE); PLATELET COUNT 284 x10e3/uL (140-360); PROTEIN,URINE DIPSTICK 2+ (NEGATIVE); RED BLOOD COUNT 4.68 x10e6/uL (4.3-5.7); RED CELL DISTRIBUTION WIDTH 18.3 % (11.7-14.4)
[2022-06-19 22:52] LABS: BACTERIA,URINE FEW /HPF; EPITHELIAL CELLS,URINE FEW /LPF; KETONES,URINE TRACE (NEGATIVE); URINE UROBILINOGEN 0.2 mg/dL (0.2 - 1); WBC,URINE (MAN) 21-50 /HPF (0-5); YEAST,URINE MODERATE
[2022-06-19 22:55] LABS: INR 1.4; PROTHROMBIN TIME 17.4 seconds (11.9-14.5)
[2022-06-19 22:56] LABS: AMPHETAMINES SCREEN,URINE NEGATIVE (NEGATIVE); BENZODIAZEPINES SCREEN,URINE NEGATIVE (NEGATIVE); PARTIAL THROMBOPLASTIN TIME 41.9 seconds (23.8-35.5); PHENCYCLIDINE SCREEN,URINE NEGATIVE (NEGATIVE)
[2022-06-19 23:06] LABS: ALBUMIN 2.4 g/dL (3.5-5.0); ALBUMIN/GLOBULIN RATIO 0.5 (0.8-2.0); ANION GAP 16.1 mmol/L (8-16); CALCIUM 8.6 mg/dL (8.4-10.2); CREATININE, SERUM 1.77 mg/dL (0.72-1.25); POTASSIUM 4.1 mmol/L (3.5-5.1)
[2022-06-20] MEDS ORDERED: DEXTROSE 50% SYRINGE 50 ML IV PRN (02:45)
[2022-06-20] MEDS ORDERED: ONDANSETRON HCL INJ 2MG/ML 2ML 2 MG/ML VIAL IV PRN (02:45)
[2022-06-20] MEDS ORDERED: Morphine 2mg Syringe 2 MG/ML SYR IV PRN (02:45)
[2022-06-20] MEDS ORDERED: BENZOCAINE/TETRACAINE/BUTAMBEN AERO SPRAY 56 GM CAN TOP ONE (02:45)
[2022-06-20] MEDS ORDERED: FLUCONAZOLE 200 MG/100 ML 100 ML IV SCH (02:45)
[2022-06-20] MEDS ORDERED: SODIUM CHLORIDE 0.9% 1000ML 1,000 ML IV SCH (02:45)
[2022-06-20] MEDS ORDERED: CEFTRIAXONE 1 GM VIAL ONE (03:14)
[2022-06-20] MEDS: SODIUM CHLORIDE 0.9% 250ML IRRIG IR SCH ×5 (05:28→22:10)
[2022-06-20] MEDS: INSULIN REGULAR, HUMAN 100 UNIT/1 ML SQ SCH ×4 (07:30→21:00)
[2022-06-20 09:55] VITALS: BP 186/68
[2022-06-20] MEDS: METOCLOPRAMIDE HCL 10 MG/2ML VIAL IV SCH ×2 (13:24→21:44)
[2022-06-20 13:29] VITALS: BP 186/68
[2022-06-20 14:11] VITALS: BP 164/54
[2022-06-20] MEDS: DEXTROSE 5%/0.45% SOD CHL 1,000 ML IV SCH (14:38)
[2022-06-20 16:38] VITALS: BP 151/57
[2022-06-20 20:00] VITALS: BP 140/57
[2022-06-20 20:03] VITALS: BP 140/57
[2022-06-20] MEDS: BISACODYL 10 MG SUPP PR SCH (21:44)
[2022-06-21] VITALS (7 sets, daily range): BP systolic 127–190; BP diastolic 55–66
[2022-06-21] MEDS: DEXTROSE 5%/0.45% SOD CHL 1,000 ML IV SCH ×3 (02:28→22:59)
[2022-06-21 06:19] LABS: BASOPHILS % 0.3 % (0.0-1.0); EOSINOPHILS # (AUTO) 0.3 (0.0-0.4); EOSINOPHILS % 2.7 % (0.0-6.0); HEMATOCRIT 33.5 % (38.2-49.6); HEMOGLOBIN 9.7 g/dL (14.0-18.0); LYMPHOCYTES # (AUTO) 1.9 (1.0-3.2); LYMPHOCYTES % 18.4 % (18.0-39.1); MEAN CORPUSCULAR HEMOGLOBIN 24.8 pg (28-32); MEAN CORPUSCULAR VOLUME 85.7 fL (81-99); MONOCYTES # (AUTO) 0.8 (0.2-0.8); MONOCYTES % 8.2 % (4.4-11.3); NEUTROPHILS # (AUTO) 7.1 (2.1-6.9); NEUTROPHILS % 69.8 % (38.7-80.0); PLATELET COUNT 229 x10e3/uL (140-360); RED BLOOD COUNT 3.91 x10e6/uL (4.3-5.7); RED CELL DISTRIBUTION WIDTH 18.3 % (11.7-14.4)
[2022-06-21 06:45] LABS: ALBUMIN 2.1 g/dL (3.5-5.0); ALBUMIN/GLOBULIN RATIO 0.5 (0.8-2.0); ANION GAP 11.3 mmol/L (8-16); CREATININE, SERUM 1.56 mg/dL (0.72-1.25); POTASSIUM 3.3 mmol/L (3.5-5.1)
[2022-06-21] MEDS: SODIUM CHLORIDE 0.9% 250ML IRRIG IR SCH ×5 (06:45→16:38)
[2022-06-21] MEDS: INSULIN REGULAR, HUMAN 100 UNIT/1 ML SQ SCH ×4 (07:30→20:23)
[2022-06-21] MEDS: BISACODYL 10 MG SUPP PR SCH ×2 (08:00→20:28)
[2022-06-21] MEDS: METOCLOPRAMIDE HCL 10 MG/2ML VIAL IV SCH ×2 (09:00→20:29)
[2022-06-21] MEDS ORDERED: POTASSIUM CHLORIDE 20MEQ/100ML 100 ML IV ONE ×2 (15:30→20:00)
[2022-06-21] MEDS: METOPROLOL TARTRATE INJ 1 MG/ML VIAL IV PRN ×2 (16:19→20:28)
[2022-06-21] MEDS ORDERED: SODIUM CHLORIDE 0.9% 250ML 250 ML ONE (16:24)
[2022-06-22] VITALS (8 sets, daily range): BP systolic 151–177; BP diastolic 50–96
[2022-06-22] MEDS: METOPROLOL TARTRATE INJ 1 MG/ML VIAL IV PRN (04:49)
[2022-06-22] MEDS: INSULIN REGULAR, HUMAN 100 UNIT/1 ML SQ SCH ×4 (07:30→22:22)
[2022-06-22] MEDS: BISACODYL 10 MG SUPP PR SCH (09:53)
[2022-06-22] MEDS: METOCLOPRAMIDE HCL 10 MG/2ML VIAL IV SCH ×2 (09:53→22:13)
[2022-06-22] MEDS: DEXTROSE 5%/0.45% SOD CHL 1,000 ML IV SCH (10:07)
[2022-06-22 20:19] LABS: CALCIUM 7.5 mg/dL (8.4-10.2); CREATININE, SERUM 1.36 mg/dL (0.72-1.25); POTASSIUM 3.5 mmol/L (3.5-5.1)
[2022-06-22 21:01] LABS: ANION GAP 11.5 mmol/L (8-16)
[2022-06-22] MEDS: HYDRALAZINE HCL 20 MG/ML VIAL IV SCH (22:12)
[2022-06-23] VITALS (7 sets, daily range): BP systolic 104–161; BP diastolic 39–97
[2022-06-23] MEDS: DEXTROSE 5%/0.45% SOD CHL 1,000 ML IV SCH ×2 (02:13→21:03)
[2022-06-23] MEDS: HYDRALAZINE HCL 20 MG/ML VIAL IV SCH ×4 (05:34→17:02)
[2022-06-23 05:38] LABS: BASOPHILS % 0.2 % (0.0-1.0); EOSINOPHILS # (AUTO) 0.3 (0.0-0.4); EOSINOPHILS % 2.5 % (0.0-6.0); HEMATOCRIT 35.4 % (38.2-49.6); HEMOGLOBIN 10.5 g/dL (14.0-18.0); LYMPHOCYTES # (AUTO) 1.5 (1.0-3.2); LYMPHOCYTES % 11.3 % (18.0-39.1); MEAN CORPUSCULAR HEMOGLOBIN 25.1 pg (28-32); MEAN CORPUSCULAR HGB CONC 29.7 g/dL (31-35); MEAN CORPUSCULAR VOLUME 84.7 fL (81-99); MONOCYTES # (AUTO) 0.7 (0.2-0.8); MONOCYTES % 5.7 % (4.4-11.3); NEUTROPHILS # (AUTO) 10.4 (2.1-6.9); NEUTROPHILS % 79.8 % (38.7-80.0); PLATELET COUNT 222 x10e3/uL (140-360); RED BLOOD COUNT 4.18 x10e6/uL (4.3-5.7); RED CELL DISTRIBUTION WIDTH 17.7 % (11.7-14.4)
[2022-06-23 06:20] LABS: ANION GAP 10.3 mmol/L (8-16); CALCIUM 7.8 mg/dL (8.4-10.2); CREATININE, SERUM 1.31 mg/dL (0.72-1.25); MAGNESIUM 1.6 MG/DL (1.3-2.1); PHOSPHORUS 2.5 MG/DL (2.3-4.7); POTASSIUM 3.3 mmol/L (3.5-5.1)
[2022-06-23] MEDS ORDERED: POTASSIUM CHLORIDE 20MEQ/100ML 100 ML IV ONE (07:30)
[2022-06-23] MEDS: INSULIN REGULAR, HUMAN 100 UNIT/1 ML SQ SCH ×4 (07:30→20:58)
[2022-06-23] MEDS: METOCLOPRAMIDE HCL 10 MG/2ML VIAL IV SCH ×2 (08:34→21:01)
[2022-06-24] VITALS (8 sets, daily range): BP systolic 100–154; BP diastolic 39–88
[2022-06-24] MEDS: HYDRALAZINE HCL 20 MG/ML VIAL IV SCH ×4 (06:00→18:00)
[2022-06-24] MEDS: INSULIN REGULAR, HUMAN 100 UNIT/1 ML SQ SCH ×4 (07:30→19:48)
[2022-06-24] MEDS: METOCLOPRAMIDE HCL 10 MG/2ML VIAL IV SCH ×2 (09:01→19:48)
[2022-06-24 10:16] LABS: ANION GAP 10.2 mmol/L (8-16); CALCIUM 7.4 mg/dL (8.4-10.2); CREATININE, SERUM 1.36 mg/dL (0.72-1.25); MAGNESIUM 1.5 MG/DL (1.3-2.1); PHOSPHORUS 2.3 MG/DL (2.3-4.7); POTASSIUM 3.2 mmol/L (3.5-5.1)
[2022-06-24] MEDS: DEXTROSE 5%/0.45% SOD CHL 1,000 ML IV SCH ×2 (10:30→21:44)
[2022-06-25 05:22] VITALS: BP 150/58
[2022-06-25] MEDS: HYDRALAZINE HCL 20 MG/ML VIAL IV SCH ×4 (06:08→17:28)
[2022-06-25] MEDS: INSULIN REGULAR, HUMAN 100 UNIT/1 ML SQ SCH ×4 (07:30→21:00)
[2022-06-25 08:17] VITALS: BP 145/46
[2022-06-25 08:49] VITALS: BP 145/46
[2022-06-25] MEDS: METOCLOPRAMIDE HCL 10 MG/2ML VIAL IV SCH ×2 (09:54→22:12)
[2022-06-25 11:13] LABS: ANION GAP 9.1 mmol/L (8-16); CALCIUM 7.4 mg/dL (8.4-10.2); CREATININE, SERUM 1.31 mg/dL (0.72-1.25); POTASSIUM 3.1 mmol/L (3.5-5.1)
[2022-06-25 11:43] LABS: MAGNESIUM 1.5 MG/DL (1.3-2.1); PHOSPHORUS 2.5 MG/DL (2.3-4.7)
[2022-06-25 12:14] VITALS: BP 168/54
[2022-06-25] MEDS: DEXTROSE 5%/0.45% SOD CHL 1,000 ML IV SCH (13:03)
[2022-06-25] MEDS ORDERED: POTASSIUM CHLORIDE 20 MEQ TAB CR PO ONE (14:35)
[2022-06-25 16:20] VITALS: BP 148/63
[2022-06-25 20:00] VITALS: BP_SYST 166; BP_SYST 172; BP_DIAS 57; BP_DIAS 58
[2022-06-26] VITALS: BP 145/61
[2022-06-26] MEDS: HYDRALAZINE HCL 20 MG/ML VIAL IV SCH ×4 (00:10→17:05)
[2022-06-26] MEDS: DEXTROSE 5%/0.45% SOD CHL 1,000 ML IV SCH ×3 (03:11→22:00)
[2022-06-26 04:00] VITALS: BP 163/48
[2022-06-26] MEDS: INSULIN REGULAR, HUMAN 100 UNIT/1 ML SQ SCH ×4 (08:01→21:00)
[2022-06-26] MEDS: METOCLOPRAMIDE HCL 10 MG/2ML VIAL IV SCH ×2 (09:05→21:52)
[2022-06-26 09:06] VITALS: BP 156/54
[2022-06-26 09:11] LABS: ANION GAP 9.2 mmol/L (8-16); CALCIUM 7.6 mg/dL (8.4-10.2); CREATININE, SERUM 1.15 mg/dL (0.72-1.25); POTASSIUM 3.2 mmol/L (3.5-5.1)
[2022-06-26 10:26] LABS: MAGNESIUM 1.6 MG/DL (1.3-2.1)
[2022-06-26 12:48] VITALS: BP 172/61
[2022-06-26 15:33] LABS: PHOSPHORUS 2.4 MG/DL (2.3-4.7)
[2022-06-26 16:06] VITALS: BP 172/66
[2022-06-26 20:00] VITALS: BP 171/73
[2022-06-27 00:47] VITALS: BP 145/78
[2022-06-27 01:11] LABS: % IRON SATURATION 9 % (15-50); IRON 16 ug/dL (65-175); TOTAL IRON BINDING CAPACITY 179 ug/dL (261-478); TRANSFERRIN 128 mg/dL (174-364)
[2022-06-27] MEDS: HYDRALAZINE HCL 20 MG/ML VIAL IV SCH ×4 (01:39→17:06)
[2022-06-27 04:00] VITALS: BP 166/56
[2022-06-27] MEDS: INSULIN REGULAR, HUMAN 100 UNIT/1 ML SQ SCH ×4 (07:30→21:00)
[2022-06-27 08:36] VITALS: BP 167/82
[2022-06-27] MEDS ORDERED: CLONIDINE HCL 0.2 MG/24 HR 1 EA PATCH TOP SCH (09:00)
[2022-06-27] MEDS: METOCLOPRAMIDE HCL 10 MG/2ML VIAL IV SCH ×2 (09:16→22:31)
[2022-06-27] MEDS: SODIUM FERRIC GLUCONATE COMPLX 125 MG in SODIUM CHLORIDE 0.9% 100 ML IV SCH (11:42)
[2022-06-27 12:25] VITALS: BP 174/59
[2022-06-27] MEDS ORDERED: LIDOCAINE HCL 2% LOCAL INJ 5 ML SDV VIAL INJ ONE (12:47)
[2022-06-27] MEDS ORDERED: PROPOFOL IV EMULSION 10 MG/ML 20 ML VIAL ONE (12:47)
[2022-06-27] MEDS ORDERED: METOCLOPRAMIDE HCL 10 MG/2ML VIAL ONE (12:47)
[2022-06-27] MEDS ORDERED: POVIDONE IODINE 0.05% 0.05 % ML PO ONE (12:47)
[2022-06-27] MEDS ORDERED: SODIUM CHLORIDE 0.9% 1000ML 1,000 ML ONE (14:41)
[2022-06-27 17:02] VITALS: BP 164/57
[2022-06-27] MEDS: DEXTROSE 5%/0.45% SOD CHL 1,000 ML IV SCH (17:07)
[2022-06-27] MEDS ORDERED: PROPOFOL IV EMULSION 50 ML IV ONE (17:24)
[2022-06-27 20:00] VITALS: BP 172/65
[2022-06-27] MEDS: METOPROLOL TARTRATE INJ 1 MG/ML VIAL IV PRN (22:36)
[2022-06-28] VITALS (8 sets, daily range): BP systolic 140–162; BP diastolic 61–92
[2022-06-28] MEDS: HYDRALAZINE HCL 20 MG/ML VIAL IV SCH ×4 (00:21→17:39)
[2022-06-28] MEDS: INSULIN REGULAR, HUMAN 100 UNIT/1 ML SQ SCH ×4 (07:30→21:00)
[2022-06-28] MEDS: DEXTROSE 5%/0.45% SOD CHL 1,000 ML IV SCH ×2 (12:51→21:48)
[2022-06-28] MEDS: METOCLOPRAMIDE HCL 10 MG/2ML VIAL IV SCH ×2 (12:52→21:49)
[2022-06-28] MEDS: SODIUM FERRIC GLUCONATE COMPLX 125 MG in SODIUM CHLORIDE 0.9% 100 ML IV SCH (13:02)
[2022-06-29] VITALS (8 sets, daily range): BP systolic 126–168; BP diastolic 48–67
[2022-06-29] MEDS ORDERED: CYANOCOBALAMIN INJ 1,000 MCG/ML VIAL IM ONE (00:15)
[2022-06-29] MEDS: HYDRALAZINE HCL 20 MG/ML VIAL IV SCH ×4 (06:00→17:11)
[2022-06-29] MEDS ORDERED: IRON SUCROSE 100 MG in SODIUM CHLORIDE 0.9% 100 ML IV SCH (09:00)
[2022-06-29] MEDS: METOCLOPRAMIDE HCL 10 MG/2ML VIAL IV SCH ×2 (09:01→22:05)
[2022-06-29] MEDS: SODIUM FERRIC GLUCONATE COMPLX 125 MG in SODIUM CHLORIDE 0.9% 100 ML IV SCH (09:01)
[2022-06-29] MEDS: CYANOCOBALAMIN INJ 1,000 MCG/ML VIAL IM SCH (09:01)
[2022-06-29] MEDS: INSULIN REGULAR, HUMAN 100 UNIT/1 ML SQ SCH ×4 (09:14→21:00)
[2022-06-29 10:24] LABS: BASOPHILS # (AUTO) 0.1 (0.0-0.1); BASOPHILS % 0.4 % (0.0-1.0); EOSINOPHILS # (AUTO) 0.2 (0.0-0.4); EOSINOPHILS % 1.2 % (0.0-6.0); HEMATOCRIT 35.3 % (38.2-49.6); HEMOGLOBIN 10.5 g/dL (14.0-18.0); LYMPHOCYTES # (AUTO) 1.7 (1.0-3.2); LYMPHOCYTES % 10.5 % (18.0-39.1); MEAN CORPUSCULAR HEMOGLOBIN 25.1 pg (28-32); MEAN CORPUSCULAR HGB CONC 29.7 g/dL (31-35); MEAN CORPUSCULAR VOLUME 84.4 fL (81-99); MONOCYTES # (AUTO) 1.3 (0.2-0.8); MONOCYTES % 8.3 % (4.4-11.3); NEUTROPHILS # (AUTO) 12.4 (2.1-6.9); PLATELET COUNT 233 x10e3/uL (140-360); RED BLOOD COUNT 4.18 x10e6/uL (4.3-5.7); RED CELL DISTRIBUTION WIDTH 18.4 % (11.7-14.4)
[2022-06-29 10:43] LABS: ANION GAP 10.9 mmol/L (8-16); CALCIUM 7.8 mg/dL (8.4-10.2); CREATININE, SERUM 1.6 mg/dL (0.72-1.25); MAGNESIUM 1.8 MG/DL (1.3-2.1); PHOSPHORUS 2.5 MG/DL (2.3-4.7)
[2022-06-29 10:51] LABS: POTASSIUM 2.9 mmol/L (3.5-5.1)
[2022-06-29] MEDS ORDERED: ONDANSETRON HCL 4 MG ORAL DISINTEGRATING TAB SL PRN (13:15)
[2022-06-29] MEDS: DEXTROSE 5%/0.45% SOD CHL 1,000 ML IV SCH (14:37)
[2022-06-29] MEDS ORDERED: POTASSIUM CHLORIDE 20 MEQ TAB CR PO STA (14:50)
[2022-06-29] MEDS: SENNOSIDES 8.6 MG TAB PO SCH (15:00)
[2022-06-29] MEDS ORDERED: POTASSIUM CHLORIDE 20 MEQ TAB CR PO ONE (15:15)
[2022-06-29] MEDS ORDERED: KCL 20 MEQ PACKET/ ORAL SOLN PO ONE (15:45)
[2022-06-29] MEDS ORDERED: MAGNESIUM HYDROXIDE 30 ML UDC PO ONE (21:30)
[2022-06-30] VITALS (7 sets, daily range): BP systolic 119–163; BP diastolic 48–67
[2022-06-30] MEDS: METOCLOPRAMIDE HCL 10 MG/2ML VIAL IV SCH ×4 (00:20→17:37)
[2022-06-30] MEDS: DEXTROSE 5%/0.45% SOD CHL 1,000 ML IV SCH ×2 (00:26→13:51)
[2022-06-30 05:14] LABS: BASOPHILS # (AUTO) 0.1 (0.0-0.1); BASOPHILS % 0.4 % (0.0-1.0); EOSINOPHILS # (AUTO) 0.3 (0.0-0.4); HEMATOCRIT 37.5 % (38.2-49.6); HEMOGLOBIN 11.1 g/dL (14.0-18.0); LYMPHOCYTES # (AUTO) 1.7 (1.0-3.2); MEAN CORPUSCULAR HEMOGLOBIN 25.5 pg (28-32); MEAN CORPUSCULAR HGB CONC 29.6 g/dL (31-35); MEAN CORPUSCULAR VOLUME 86.2 fL (81-99); MONOCYTES % 6.2 % (4.4-11.3); NEUTROPHILS # (AUTO) 12.6 (2.1-6.9); NEUTROPHILS % 79.4 % (38.7-80.0); PLATELET COUNT 192 x10e3/uL (140-360); RED BLOOD COUNT 4.35 x10e6/uL (4.3-5.7); RED CELL DISTRIBUTION WIDTH 18.5 % (11.7-14.4)
[2022-06-30 05:34] LABS: ANION GAP 11.4 mmol/L (8-16); CALCIUM 7.9 mg/dL (8.4-10.2); CREATININE, SERUM 1.48 mg/dL (0.72-1.25); MAGNESIUM 1.9 MG/DL (1.3-2.1); PHOSPHORUS 1.8 MG/DL (2.3-4.7); POTASSIUM 3.4 mmol/L (3.5-5.1)
[2022-06-30] MEDS: HYDRALAZINE HCL 20 MG/ML VIAL IV SCH ×4 (06:54→17:37)
[2022-06-30] MEDS ORDERED: DOCUSATE SODIUM LIQD 100 MG/10 ML UDC NG SCH (09:00)
[2022-06-30] MEDS: INSULIN REGULAR, HUMAN 100 UNIT/1 ML SQ SCH ×4 (10:06→21:00)
[2022-06-30] MEDS: CYANOCOBALAMIN INJ 1,000 MCG/ML VIAL IM SCH (10:50)
[2022-06-30] MEDS: SENNOSIDES 8.6 MG TAB PO SCH (10:50)
[2022-06-30] MEDS: DOCUSATE SODIUM LIQD 100 MG/10 ML UDC PEG SCH (10:50)
[2022-06-30] MEDS: SODIUM FERRIC GLUCONATE COMPLX 125 MG in SODIUM CHLORIDE 0.9% 100 ML IV SCH (10:50)
[2022-06-30] MEDS ORDERED: POTASSIUM PHOSPHATE 15 MM in SODIUM CHLORIDE 0.9% 250ML 250 ML IV ONE (11:00)
[2022-07-01] VITALS: BP 118/50
[2022-07-01] MEDS: METOCLOPRAMIDE HCL 10 MG/2ML VIAL IV SCH ×3 (00:36→12:50)
[2022-07-01] MEDS: DEXTROSE 5%/0.45% SOD CHL 1,000 ML IV SCH (02:50)
[2022-07-01 04:00] VITALS: BP 123/57
[2022-07-01] MEDS: HYDRALAZINE HCL 20 MG/ML VIAL IV SCH ×3 (06:00→12:50)
[2022-07-01 08:00] VITALS: BP 142/51
[2022-07-01] MEDS: INSULIN REGULAR, HUMAN 100 UNIT/1 ML SQ SCH ×2 (08:00→12:15)
[2022-07-01] MEDS: SENNOSIDES 8.6 MG TAB PO SCH (08:57)
[2022-07-01] MEDS: CYANOCOBALAMIN INJ 1,000 MCG/ML VIAL IM SCH (08:57)
[2022-07-01] MEDS: DOCUSATE SODIUM LIQD 100 MG/10 ML UDC PEG SCH (08:57)
[2022-07-01 12:40] VITALS: BP 132/51
[2022-07-01 12:43] LABS: ANION GAP 10.5 mmol/L (8-16); CALCIUM 7.4 mg/dL (8.4-10.2); CREATININE, SERUM 1.31 mg/dL (0.72-1.25); POTASSIUM 3.5 mmol/L (3.5-5.1)
[2022-07-01] MEDS ORDERED: REGLAN5 MG PO (15:46)
[2022-07-01 16:31] VITALS: BP 126/47
== END 2022-07-01 17:45 | DRG 389 ==
LOC: ER 21:30 → ERHOLD 06-20 02:52 → MED/SURG 06-20 09:27
PROVIDERS: ADMIT Internal Medicine; ATTEND Internal Medicine
PROC: 0D9670Z Drainage of Stomach with Drainage Device, Via Natural or Artificial Opening (ICD-10-PCS; principal; 2022-06-20)
PROC: 0DH68UZ Insertion of Feeding Device into Stomach, Via Natural or Artificial Opening Endoscopic (ICD-10-PCS; 2022-06-27)
DX: K56.609 Unspecified intestinal obstruction, unspecified as to partial versus complete obstruction (principal); I69.354 Hemiplegia and hemiparesis following cerebral infarction affecting left non-dominant side; N17.9 Acute kidney failure, unspecified; N39.0 Urinary tract infection, site not specified; K59.00 Constipation, unspecified; E87.6 Hypokalemia; I10 Essential (primary) hypertension; E11.51 Type 2 diabetes mellitus with diabetic peripheral angiopathy without gangrene; E55.9 Vitamin D deficiency, unspecified; F32.A Depression, unspecified; E78.5 Hyperlipidemia, unspecified; F44.4 Conversion disorder with motor symptom or deficit; D50.9 Iron deficiency anemia, unspecified; K44.9 Diaphragmatic hernia without obstruction or gangrene; K21.00 Gastro-esophageal reflux disease with esophagitis, without bleeding; K26.9 Duodenal ulcer, unspecified as acute or chronic, without hemorrhage or perforation; Z20.822 Contact with and (suspected) exposure to COVID-19; Z74.01 Bed confinement status
CPT/HCPCS: 0223U; 36415; 43246; 71045; 74018; 74019; 74022; 74176; 74230; 80048; 80053; 80307; 81001; 82607; 82746; 82948; 83540; 83690; 83735; 84100; 84466; 84484; 85025; 85045; 85610; 85730; 93005; 96361; 99252; 99284; J0360; J0696; J1450; J1756; J1817; J2001; J2270; J2405; J2765; J2916; J3420; J3480; J7030; J7050